=== PATIENT | male | born 1980 | race Caucasian/White ===

== ENCOUNTER 2022-02-10 17:06 | Emergency (ER) | payer MEDICAID, OTHER ==
[~2022-02-10] VITALS: Ht 160 cm; Wt 89.8 kg
[2022-02-10 17:10] VITALS: BP 148/70
--- NOTE | 2022-02-10 17:15 | NUR ---
41 Y/O M C/O HEAD TRAUMA APPROX. 4 HOURS AGO. PT STATES THAT HE WAS MOWING THE LAWN WHEN HE FELL ON HIS RIGHT SIDE. PT REPORTS LOC, RIGHT SHOULDER PAIN, RIGHT HIP PAIN AND RIGHT FOREHEAD ABRASION. TOOK TYLENOL 3 HOURS AGO. PT IS ALERT AND ORIENTD X4. PT DENIES CHEST PAIN, SOB, FEVER OR CHILLS. BED IN LOWEST POSITION. SIDE RAIL X1. PMH: HTN MEDs: UNRECALLED NKA
--- NOTE | 2022-02-10 17:45 | NUR ---
PT TAKE TO CT VIA WC
--- NOTE | 2022-02-10 17:46 | NUR ---
AT PT BEDSIDE
[2022-02-10] MEDS ORDERED: LIDOCAINE MPF 1% 10 MG/ML VIAL IM ONE (17:50)
--- NOTE | 2022-02-10 17:56 | NUR ---
XR AT PT BEDSIDE
--- NOTE | 2022-02-10 19:12 | NUR ---
Pt report given to KASHIF VAZQUEZ. Transfer of care at this time. LIDOCAINE PULLED FOR PATIENT AND WILL BE GIVEN TO PATIENT DURING PENDING PROCEDUREBY .
--- NOTE | 2022-02-10 20:34 | NUR ---
Patient discharged with v/s stable. Written and verbal after care instructions given and explained. Patient verbalized understanding. Ambulatory with steady gait. All questions addressed prior to discharge. Advised to follow up with PMD. VSS, A/OX4, AMBULATORY, UNLABORED BREATHING, AND CALM DEMEANOR.
[2022-02-10 20:35] VITALS: BP 123/63
== END 2022-02-10 20:34 | disposition home or self-care (01) ==
LOC: MED 17:06
DX: S01.81XA Laceration without foreign body of other part of head, initial encounter (principal); I10 Essential (primary) hypertension; W01.0XXA Fall on same level from slipping, tripping and stumbling without subsequent striking against object, initial encounter; Y93.89 Activity, other specified; Y92.89 Other specified places as the place of occurrence of the external cause; Y99.8 Other external cause status
CPT/HCPCS: 12001; 70450; 73030; 96372; 99284; J2001

== ENCOUNTER 2022-02-18 18:49 | Emergency (ER) | payer MEDICAID ==
[~2022-02-18] VITALS: Ht 165.1 cm; Wt 88.5 kg
[2022-02-18 19:03] VITALS: BP 132/80
--- NOTE | 2022-02-18 19:03 | NUR ---
TO ER BED 12
--- NOTE | 2022-02-18 19:19 | NUR ---
Pt report given to GEORGE ROWLAND. Transfer of care at this time.
--- NOTE | 2022-02-18 19:19 | NUR ---
41 Y/O MALE BIBS, HERE FOR SUTURE REMOVAL. PT WAS SEEN LAST WEEK FOR LACERATION HERE AT [facility] AND WAS SUTURED ON FOREHEAD. PT IS NOW HERE FOR THE REMOVAL OF THE SUTURES. NO SIGN OF INFECTION. DEE
--- NOTE | 2022-02-18 19:20 | NUR ---
DR CALERO AT BEDSIDE PERFORMING SUTURE REMOVAL. PT TOLERATED PROCEDURE WELL.
--- NOTE | 2022-02-18 19:20 | NUR ---
Saw downs in [facility] - 02/18/22 at [id number] CALERO AT BEDSIDE PERFORMING SUTURE REMOVAL
--- NOTE | 2022-02-18 19:54 | NUR ---
PT DC BY ADARSH CALERO
== END 2022-02-18 19:54 | disposition home or self-care (01) ==
LOC: MED 18:49
DX: S01.81XD Laceration without foreign body of other part of head, subsequent encounter (principal); Z48.02 Encounter for removal of sutures; I10 Essential (primary) hypertension; X58.XXXD Exposure to other specified factors, subsequent encounter
CPT/HCPCS: 99281

== ENCOUNTER 2024-05-21 18:34 | Emergency (ER) | payer OTHER ==
[~2024-05-21] VITALS: Ht 172.7 cm; Wt 90.7 kg
[2024-05-21] MEDS: KETOROLAC 30 MG/ML VIAL IM ONE (18:50)
[2024-05-21 18:51] VITALS: BP 119/53; PULSE 82; RESP 20; TEMP 97.9; O2SAT 98
[2024-05-21] MEDS ORDERED: IBUP-2213 PO (20:33)
== END 2024-05-21 20:44 | disposition home or self-care (01) ==
LOC: MED 18:34
DX: S39.012A Strain of muscle, fascia and tendon of lower back, initial encounter (principal); I10 Essential (primary) hypertension; Z79.1 Long term (current) use of non-steroidal anti-inflammatories (NSAID); V43.52XA Car driver injured in collision with other type car in traffic accident, initial encounter; Y93.89 Activity, other specified; Y92.89 Other specified places as the place of occurrence of the external cause; Y99.8 Other external cause status
CPT/HCPCS: 72100; 96372; 99283; J1885